=== PATIENT | female | born 1985 | race Caucasian/White ===

== ENCOUNTER 2023-09-16 15:05 | Emergency (ER) | payer OTHER, SELFPAY ==
[2023-09-16 15:10] VITALS: BP 167/91
--- NOTE | 2023-09-16 15:59 | ED.GENMED ---
History of Present Illness
General
Chief Complaint: Chest Pain
Source: patient
Exam Limitations: none
Time Seen by Provider: 09/16/23 15:21
Nursing documentation reviewed up to this point in time: agreed with
Travel History
Have you had any contact with someone who has COVID-19?: No
Do you have any symptoms of coronavirus? Fever > 100 degrees, chills, cough, shortness of breath, sore throat, loss of taste or smell, muscle aches, or headache?: No
History of Present Illness
History of Present Illness:
Patient is a 37-year-old female with no significant past medical history presenting for evaluation of left-sided chest pain. Patient first noticed the symptoms sometime this past weekend and endorses a dull ache/pressure sensation in her left
chest. She thinks pain is somewhat worse with exertion, but denies any pleuritic component. Patient denies any true shortness of breath, nausea, vomiting, fevers.
Of note�patient is recovering from a likely flu infection that she had last week. She still has a intermittent cough. She denies any hemoptysis.
Patient is not on any oral contraceptive. No recent travel. No recent surgeries. No personal or family history of blood clots or clotting disorders.
Phy Exam
Physical Exam
Physical Exam:
General: Well appearing and non-toxic
Vitals: Hypertensive, otherwise vital signs stable, afebrile
HEENT: Atraumatic, normocephalic; protecting airway
Neck: appears supple no JVD
CV: Regular rate and rhythm, heart sounds normal, no evidence of cyanosis; anterior chest wall nontender to palpation
Resp: Slightly diminished breath sounds bilaterally, no evidence of respiratory distress
Abd: Soft, nontender, non-distended
Extremities: No deformities, no evidence of cyanosis or edema; DP pulses palpable and equal bilaterally, no clinical evidence of DVT on exam
Neuro: alert and oriented x 3; grossly intact
Psych: Normal affect
Skin: Intact
Scores
Heart Score for Chest Pain Patients
STEMI patient?: No
History: Slightly or Non-Suspicious
ECG: Normal
Age: </= 45 years
Risk Factors: No Risk Factors
Troponin: </= Normal Limit
Heart Score for Chest Pain Patients: 0
Heart Score Risk: 2.5% MACE over next 6 weeks
PERC Rule Criteria
Age <50 years: Yes
HR <100 bpm: Yes
Room air oxygen sat >94%: Yes
History of DVT or PE: No
Recent trauma or surgery: No
Hemoptysis: No
Exogenous estrogen: No
Clinical signs suggestive of DVT: No
: No
Considered low risk for PE: Yes
PERC Score: 0
PE can be excluded by PERC: Yes
Course
Orders/Labs/Results
Orders:
Orders
09/16/23 15:13
Electrocardiogram (*1) Urgent
Reason for Study: Chest Pain
EKG- Treatment ONCE
09/16/23 15:58
Ipratropium/Albuterol Sulfate [Duoneb] 3 ml INH R NOW STA
Ketorolac [Toradol] 15 mg IV NOW STA
09/16/23 15:59
Test Result ONCE
CR Chest - 2 Views Urgent
Comment:
Reason For Exam: chest pain, recent flu
09/16/23 16:06
Complete Blood Count/With Diff Urgent
Comprehensive Metabolic Panel Urgent
HCG, Serum Qualitative Screen Urgent
Troponin I Urgent
Abnormal Lab Results
09/16/23
16:06
RBC 3.92 L 10^6/uL
(4.20-5.40)
Hgb 11.6 L g/dL
(12.0-16.0)
Hct 33.0 L %
(37.0-47.0)
Creatinine 0.5 L mg/dL
(0.6-1.0)
ALT 51 H U/L
(0-35)
09/16/23 16:06
09/16/23 16:06
Vital Signs
Initial and Last Documented VS:
Initial Vital Signs
Temp Pulse Resp BP Pulse Ox
99.3 F 67 20 167/91 98
09/16/23 15:10 09/16/23 15:10 09/16/23 15:10 09/16/23 15:10 09/16/23 15:10
Last Documented Vital Signs
Temp Pulse Resp BP Pulse Ox
99.3 F 64 16 108/70 100
09/16/23 15:10 09/16/23 18:00 09/16/23 18:00 09/16/23 17:31 09/16/23 18:00
MDM/Problems Addressed
Differential Diagnosis Includes:
Pneumonia, bronchitis, costochondritis, pericarditis, myocarditis, doubt PE or ACS
MDM/Problems Addressed:
Patient is a 37 year old female presenting for evaluation of left sided chest discomfort for the past 2 days in the setting of a recent URI/influenza. No fever or chills. Still having intermittent coughing. Denies any shortness of breath or
pleuritic component to chest pain. Patient has stable vital signs. Physical exam as documented above. Heart rate regular, breath sounds slightly diminished. No clinical evidence of DVT on exam and no risk factors. I would consider her very low risk
for PE and can be ruled out by PERC criteria. EKG shows normal sinus without signs of ischemia. Will check basic labs, troponin, chest xray. Will give duoneb and toradol for pain.
CBC without any clinically significant abnormalities. CMP without any clinically significant abnormalities. Initial troponin negative - given pain has been ongoing for past 2 days this is sufficient to rule out acute IA. Chest xray pending. Patient
states pain improved after toradol/duoneb
Chest xray shows no evidence of pneumonia or acute cardiopulmonary process.
Patient remains stable. Pain is improved. Workup negative. Suspect likely either bronchitis vs costochondritis. Stable for discharge with NSAID, albuterol inhaler as needed. She will follow-up with primary care. Return precautions discussed.
Chronic conditions affecting care:
N/A
Acute Exacerbation and/or Progression of Chronic Illness:
N/A
*Radiology
Radiology exam reviewed: preliminary read by ED provider and radiology read reviewed
*Pulse Oximetry
Patient hypoxic: no
*EKG
Interpreted by ED Provider?: Yes
EKG Intrepretation Date: 09/17/23
Interpretation: normal
Comparison EKG: no comparison EKG present
Heart Rate: 68
Rate: normal
Rhythm: sinus
Leon: normal axis
Interval: normal interval
QRS Pattern: normal QRS
Ischemia: no ischemia
*[employer] Interpretation
Rate: normal
Interpretation: normal
Heart Rate: 68
Rhythm: sinus
*Critical Care Note
Total Time (30-74mins, 75-104mins- exclusive of procedures): Not Applicable
Data Reviewed
Source: other (urgent care records/ EKG)
Further Testing Considered But Not Given:
D-dimer/CTA chest- patient low risk for PE and ruled out with PERC
ED Attending Note
-
Portions of this chart may have been created with voice recognition software.� Occasional wrong word or��sound alike� substitutions may have occurred due to the inherent limitations of voice recognition software.
Discharge Plan
Departure
Patient Disposition: Home (Routine Discharge)
Date of Disposition: 09/16/23
Time of Disposition: 17:54
Patient with high blood pressure during this ER visit?: Yes
Condition: Good
Covid-19: Not Applicable
Discharge Problem:
Chest pain, unspecified, Acute bronchitis
Instructions: Chest Pain, Acute Bronchitis, Adult (DC)
Prescriptions:
New
albuterol sulfate [ProAir HFA] 90 mcg/actuation HFA aerosol inhaler
See Rx Instructions .ROUTE .COMPLEX Qty: 8.5 0RF
Rx Instructions:
1 puff inhaled Q 4-6 hours PRN cough/shortness of breath
Referrals:
UNKNOWN - PT DOES,NOT KNOW [Family Provider] -
Activity Restrictions/Additional Instructions:
- Return to the emergency department with any severe chest pain, shortness of breath, high fevers, persistent cough, severe headache, worsening current symptoms, or any other concerns
-You can take Motrin as needed for discomfort
-A prescription for an inhaler has been sent to your pharmacy. You can use this every 4-6 hours as needed for cough/shortness of breath.
-It is important stay well-hydrated
-You should follow-up with your primary care provider for further evaluation/management
Interventions
Interventions:
*Risk Screen - Suicide Last Done: 09/16/23 15:10
*General Assessment Last Done: 09/16/23 15:10
*Neglect/Abuse Screening Last Done: 09/16/23 15:10
ED- Fall Risk Assessment Last Done: 09/16/23 16:05
*ED COVID-19 Vaccine History Last Done: 09/16/23 16:05
*Nursing Disposition Last Done: 09/16/23 18:01
ED- Cardiac Assessment Last Done: 09/16/23 16:05
Discharge Date and Time
Discharge Date/Time: 09/16/23 18:01
[2023-09-16 16:05] VITALS: BMI 26.7
[2023-09-16] MEDS: TORADOL 15 MG IV (16:15)
[2023-09-16] MEDS: DUONEB 3 ML INH (16:16)
[2023-09-16 16:23] LABS: % Basophils 0.4 % (0-2); % Eosinophils 2.3 % (0-6); % Immature Granulocytes 0.4 % (0-0.5); % Lymphocytes 33.9 % (20.5-51.1); % Monocytes 7.3 % (1.7-9.3); % Neutrophils 55.7 % (42.2-75.2); Absolute Eosinophils 0.1 10^3/uL (0-0.7); Absolute Lymphocytes 1.9 10^3/uL (1.2-3.4); Absolute Monocytes 0.4 10^3/uL (0.1-0.6); Absolute Neutrophils 3.1 10^3/uL (1.4-6.5); Hemoglobin 11.6 g/dL (12.0-16.0); Mean Corp Hgb Conc. 35.2 g/dL (33.0-37.0); Mean Corpuscular Hgb 29.6 pg (27.0-31.0); Mean Corpuscular Volume 84.2 fL (81.0-99.0); Mean Platelet Volume 10.1 fL (7.4-10.4); Nucleated Red Blood Cells % 0 %; Platelet Count 207 10^3/uL (130-400); Red Blood Cell Count 3.92 10^6/uL (4.20-5.40); Red Cell Dist. Width 11.9 % (11.5-14.5); White Blood Cell Count 5.6 10^3/uL (4.8-10.8)
[2023-09-16 16:31] LABS: HCG, Serum Qualitative Screen Negative
[2023-09-16 16:35] LABS: ALT (SGPT) 51 U/L (0-35); AST (SGOT) 33 U/L (14-36); Albumin 4.5 g/dl (3.5-5.0); Alkaline Phosphatase 64 U/L (38-126); Blood Urea Nitrogen 10 mg/dl (7-17); Calcium 9.7 mg/dl (8.4-10.2); Carbon Dioxide 26 mmol/L (22-30); Chloride 101 mmol/L (98-107); Estimated Creatinine Clearance 123 ml/min; Glucose 86 mg/dl (70-99); Potassium 4.2 mmol/L (3.5-5.1); Sodium 137 mmol/L (135-145); Total Bilirubin 0.7 mg/dl (0.2-1.3); Total Protein 7.4 g/dl (6.3-8.2); eGFR > 60.00
[2023-09-16 16:43] LABS: Troponin I < 0.012 ng/ml
[2023-09-16 17:31] VITALS: BP 108/70
== END 2023-09-16 18:01 | disposition home or self-care (01) ==
LOC: EMR 15:05
PROVIDERS: Physician Assistant; EMERGENCY PHYSICIAN Emergency Medicine
DX: R07.89 Other chest pain (principal); J20.9 Acute bronchitis, unspecified; R03.0 Elevated blood-pressure reading, without diagnosis of hypertension
CPT/HCPCS: 99285; 96374; 94640; 71046; 80053; 84484; 84703; 85025; 93005

== ENCOUNTER → 2023-10-24 10:07 | Outpatient (REF) | payer OTHER, SELFPAY ==
[2023-10-24 13:30] LABS: % Basophils 1.1 % (0-2); % Eosinophils 3.4 % (0-6); % Immature Granulocytes 0.4 % (0-0.5); % Lymphocytes 28.5 % (20.5-51.1); % Monocytes 8.4 % (1.7-9.3); % Neutrophils 58.2 % (42.2-75.2); Absolute Basophils 0.1 10^3/uL (0-0.2); Absolute Eosinophils 0.3 10^3/uL (0-0.7); Absolute Lymphocytes 2.1 10^3/uL (1.2-3.4); Absolute Monocytes 0.6 10^3/uL (0.1-0.6); Absolute Neutrophils 4.3 10^3/uL (1.4-6.5); Hematocrit 36.9 % (37.0-47.0); Hemoglobin 12.2 g/dL (12.0-16.0); Mean Corp Hgb Conc. 33.1 g/dL (33.0-37.0); Mean Corpuscular Hgb 29.4 pg (27.0-31.0); Mean Corpuscular Volume 88.9 fL (81.0-99.0); Mean Platelet Volume 11.2 fL (7.4-10.4); Nucleated Red Blood Cells % 0 %; Platelet Count 253 10^3/uL (130-400); Red Blood Cell Count 4.15 10^6/uL (4.20-5.40); Red Cell Dist. Width 12.6 % (11.5-14.5); White Blood Cell Count 7.4 10^3/uL (4.8-10.8)
[2023-10-24 13:44] LABS: ALT (SGPT) 38 U/L (0-35); AST (SGOT) 31 U/L (14-36); Albumin 4.8 g/dl (3.5-5.0); Alkaline Phosphatase 55 U/L (38-126); Blood Urea Nitrogen 13 mg/dl (7-17); Calcium 10.1 mg/dl (8.4-10.2); Carbon Dioxide 24 mmol/L (22-30); Chloride 105 mmol/L (98-107); Glucose 103 mg/dl (70-99); HDL Cholesterol 69 mg/dl; LDL Cholesterol, Calculated 75 mg/dl; Potassium 4.7 mmol/L (3.5-5.1); Sodium 136 mmol/L (135-145); Total Bilirubin 0.5 mg/dl (0.2-1.3); Total Cholesterol 162 mg/dl (50-199); Total Protein 7.8 g/dl (6.3-8.2); Triglyceride 94 mg/dl (10-149); Very Low Density Lipoprotein 18 mg/dl (0-30); eGFR > 60.00
[2023-10-24 13:49] LABS: Glycohemoglobin (HgbA1c) 5.4 % (4.0-5.6)
[2023-10-24 14:12] LABS: TSH Reflex To Free T4 1.99 uIU/ml (0.47-4.68)
== END ==
LOC: SDSPAT 10:07
PROVIDERS: ATTENDING PHYSICIAN Student in an Organized Health Care Education/Training Program
DX: R53.83 Other fatigue (principal)
CPT/HCPCS: 36415; 80053; 80061; 83036; 84443; 85025